=== PATIENT | female | born 1955 | race Caucasian/White ===

== ENCOUNTER → 2020-04-06 12:17 | Outpatient (CLI) | payer MEDICARE, SELFPAY ==
--- NOTE | ~2020-04-06 | DEXA_ITS ---
Bone Density Report Name: Rosalee Toth Age: 64 Sex: Female Ethnicity: White Date of : 1955 Indication: postmenopausal; screening for osteoporosis; height loss; prior fracture; Referring Provider: Eliza, Anastasia Warner Study: Bone densitometry was performed. Exam Date: April 06, 2020 Accession number: [id number] Bone Density: Region BMD T-score Z-score Classification AP Spine (L1, L2, L4) 1.151 1.1 2.9 Normal Femoral Neck (Left) 0.794 -0.5 1.0 Normal Total Hip (Left) 0.972 0.2 1.5 Normal Femoral Neck (Right) 0.871 0.2 1.7 Normal Total Hip (Right) 1.008 0.5 1.8 Normal Total Hip Mean 0.990 0.4 1.7 Normal World Health Organization criteria for BMD impression classify patients as: Normal (T-score at or above -1.0), Osteopenia (T-score between -1.0 and -2.5), or Osteoporosis (T-score at or below -2.5). 10-year Fracture Risk: FRAX not reported because: All T-scores for Spine Total, Hip Total, Femoral Neck at or above -1.0 Previous Exams: Region Exam Age BMD T-score BMD Change BMD Change Date g/cm2 vs Baseline vs Previous AP Spine(L1, L2, L4) 04/06/2020 64 1.151 1.1 0.024* 0.024* 10/08/2009 54 1.128 0.9 Total Hip(Left) 04/06/2020 64 0.972 0.2 -0.027 -0.027 10/08/2009 54 0.999 0.5 Total Hip(Right) 04/06/2020 64 1.008 0.5 0.036* 0.036* 10/08/2009 54 0.973 0.3 *Denotes significance at 95% confidence level, LSC for AP Spine = 0.022 g/cm2, LSC for Total Hip = 0.027 g/cm2 Clinical Information Provided by Patient: Has had a low trauma fracture Patient maximum height was 68.25 Menopause Age: 42 No regular weight bearing exercise Does not regularly consume dairy products Drinks caffeinated beverages Onset of menses at age 9 Number of children 1 Impression: The patient has normal bone mass. The patient has risk factors, including: previous fracture. No significant bone loss was observed. Discussion: BONE DENSITY IS ABOVE THE MINIMUM DESIRABLE LEVEL AT ALL SKELETAL SITES TESTED. This patient?s bone mineral density is above the minimum desirable level (T-score -1.0 or better) at all sites measured. The patient should follow a healthful lifestyle (good nutrition with adequate calcium and vitamin D, and appropriate weight-bearing exercise). Follow-Up: Consider repeating this study in 5 years or sooner if there is some new clinical indication. Reported by
--- NOTE | ~2020-04-06 | MM_ITS ---
EXAMINATION: MM screening [facility] BI w [place] HISTORY: Screening mammogram TECHNIQUE: Craniocaudal and mediolateral oblique 3-D tomosynthesis images were obtained and synthetic 2-D images were generated. CAD analysis was submitted and interpreted. COMPARISON: 01/25/2018, 01/27/2016, 08/23/2012 BREAST PARENCHYMAL COMPOSITION: The breasts are almost entirely fatty. FINDINGS: Small left breast masses have a stable appearance compared to prior mammograms. There is no evidence of suspicious mass, calcification, or architectural distortion to suggest malignancy in eit her breast. There has been no suspicious interval change. IMPRESSION: 1. No mammographic evidence of malignancy. 2. Recommend routine screening mammography in one year. BI-RADS Category 2: Benign finding(s). Reviewed, dictated and finalized at location A. RESS ENGINEER
== END ==
PROVIDERS: PCP Family Medicine Adolescent Medicine; Visit Provider Physician Assistant
DX: Z12.31 Encounter for screening mammogram for malignant neoplasm of breast (principal); Z78.0 Asymptomatic menopausal state
CPT/HCPCS: 77063; 77067; 77080

== ENCOUNTER 2020-11-29 14:13 | Emergency (ER) | payer MEDICARE, SELFPAY ==
--- NOTE | ~2020-11-29 | XR_ITS ---
EXAMINATION: XR elbow RT min 3V EXAM DATE: 11/29/2020 14:31 INDICATION: Fall today, right elbow weakness. Initial encounter. TECHNIQUE: Right elbow frontal, lateral with flexion, and oblique projections obtained and reviewed. There is no prior study for comparison. FINDINGS: Acute closed posttraumatic right radial neck fracture. No definite fracture line extending through the head. There is an elbow joint hemarthrosis. No other suspicious findings. IMPRESSION: Acute nondisplaced right radial neck fracture. Hemarthrosis. Reviewed, dictated and finalized at location A.
[2020-11-29 14:23] VITALS: BP 97/60; PULSE 92; RESP 16; TEMP 36.2; O2SAT 98
--- NOTE | 2020-11-29 14:46 | ED.UPPEXIN ---
HPI - Extremity Injury (Upper) General Chief Complaint: Extremity Injury, Upper Stated Complaint: rt arm injury Source: patient and RN notes reviewed Limitations: no limitations History of Present Illness HPI narrative: The obese patient, previously mostly healthy on minimal meds, presents with elbow pain. Patient states she slipped and fell on outstretched hand and has mild right elbow pain that is worse at endpoints of movement. No bleeding, deformity, prior/other injury-though she abraded her right knee. She has a prior orthopedist [Dr. Mendez], so advised to see them in follow-up; screening blood pressure remarkable for /60. Patient states she is asymptomatic without lightheadedness, presyncope; advised to take half her lisinopril dose, tell her doctor, and check her blood pressures at least daily. Related Data Home Medications Medication Instructions Recorded Confirmed ezetimibe mg 11/29/20 ibuprofen 11/29/20 lisinopril 11/29/20 metformin mg PO 11/29/20 Allergies Allergy/AdvReac Type Severity Reaction Status Date / Time codeine Allergy Unknown Hives Verified 11/29/20 14:49 Penicillins Allergy Unknown Other Verified 11/29/20 14:49 hydromorphone [From Dilaudid] Allergy Hives Verified 11/29/20 14:49 Review of Systems Review of Systems: Narrative: General/Constitutional: No weight loss,fever Eyes: N0: Redness,discharge Ears/Nose/Throat: No: Epistaxis,ear discharge Respiratory: Denies: Hemoptysis Gastrointestinal: No Vomiting, Bleeding-rectal Skin: No Lumps, eruption Neurologic: No Focal Weakness,Sz Hematologic: Denies: Petechiae/Purpura Psychiatric: No: Suicida ideationl All Other Systems: Reviewed and Negative PMFSH Family History Family History (Updated 01/22/14 @ 07:13 by DOCTOR UNKNOWN) Father Cerebrovascular accident Sibling Cerebrovascular accident Acute myocardial infarction Other Diabetes mellitus Hypertension Social History Social History Alcohol intake: never Comments At time of signature, agree with nursing past medical, surgical, social and family history. There is no relevant family history pertinent to the presenting complaint Exam Narrative: Exam Narrative: General Appearance: Overweight/well nourished, , Conjunctiva clear Mouth/Throat: Normal appearing, Normal lips, Supple Respiratory: Airway patent, No respiratory distress MS-elbow:Nl strength (mostly intact, limited flexion/extension by pain),Tenderness (proximo- laterally, with mild decreased ROM), no swelling ,Other-no anterior drawer, no collateral laxity, Skin: Warm, Dry, Normal color; R knee abraded Neurological: A&O x3, Speech clear, CN II-XII intact Psychiatric: Normal mood, Normal affect Course Course Emergency Course: Films visualized, interpreted by radiologist, agree, ABnormal see report Vital Signs Vital signs: Vital Signs Temperature 97.1 F L 11/29/20 14:23 Pulse Rate 92 11/29/20 14:23 Respiratory Rate 16 11/29/20 14:23 Blood Pressure 97/60 L 11/29/20 14:23 Pulse Oximetry 98 11/29/20 14:23 Temperature 97.1 F L 11/29/20 14:23 Pulse Rate 92 11/29/20 14:23 Respiratory Rate 16 11/29/20 14:23 Blood Pressure 97/60 L 11/29/20 14:23 Pulse Oximetry 98 11/29/20 14:23 Discharge Plan Discharge Clinical Impression: Fracture of right radius Qualifiers: Encounter type: initial encounter Radius location: neck Fracture type: closed Fracture alignment: nondisplaced Qualified Code(s): S52.134A - Nondisplaced fracture of neck of right radius, initial encounter for closed fracture Patient Disposition: Home, Self-Care Condition: Improved Instructions: Elbow Fracture (ED) Additional Instructions: Wear splint, see orthopedics in follow-up Prescriptions: New tramadol 50 mg tablet 50 mg PO TID PRN (Reason: pain) Qty: 20 RF: 0 No Action lisinopril 10 mg tablet RF: 0 ibuprofen 200 mg Tablet RF: 0 metformin 500 m
== END 2020-11-29 15:10 | disposition home or self-care (01) ==
PROVIDERS: Emergency Provider Emergency Medicine; PCP Family Medicine Adolescent Medicine
DX: S52.134A Nondisplaced fracture of neck of right radius, initial encounter for closed fracture (principal); W01.0XXA Fall on same level from slipping, tripping and stumbling without subsequent striking against object, initial encounter
CPT/HCPCS: 29105; 73080; 99214; A4565; G0463

== ENCOUNTER 2023-09-14 12:56 | Outpatient (CLI) | payer MEDICARE, SELFPAY ==
--- NOTE | ~2023-09-14 | CT_ITS ---
Non-contrast CT scan of the Abdomen and Pelvis Clinical indication: Abdominal pain Technique: 2.5 mm axial scans were obtained through the abdomen and pelvis without intravenous or or al contrast. Dose reduction technique was used on this scan by utilizing automated exposure control a nd iterative reconstruction technique. The dose-length product (DLP) was 1162.66 mGy-cm. Findings: Images through the lung bases reveal no abnormalities. There is no evidence of renal or ureteral calculi. The kidneys and the ureters are nondilated. The liver, spleen, pancreas, gallbladder, and adrenals appear normal. There are atherosclerotic calci fications of the aorta. There is no evidence of bowel obstruction. Images through the pelvis were performed. There is no evidence of ascites or lymphadenopathy. Urinary bladder unremarkable. No pelvic mass seen. No ascites. Impression: No significant abnormality seen. Reviewed, dictated and finalized at [facility]. Impression: No significant abnormality seen.
== END 2023-09-14 12:57 ==
PROVIDERS: PCP Family Medicine Adolescent Medicine; Visit Provider Family Medicine Adolescent Medicine
DX: R10.84 Generalized abdominal pain (principal)
CPT/HCPCS: 74176

== ENCOUNTER 2023-10-11 00:50 | Day surgery (SDC) | payer MEDICARE, SELFPAY ==
[2023-10-02 15:05] VITALS: BMI 33.9
[2023-10-11 06:50] VITALS: BP 138/84; PULSE 69; RESP 18; TEMP 36.4; O2SAT 99; BMI 36.5
[2023-10-11] MEDS: LACTATED RINGERS 1,000 ML 150 ML IV CONT (06:53)
[2023-10-11 07:12] LABS: Glucose Point of Care 130 mg/dl (65-105)
--- NOTE | 2023-10-11 07:27 | WPDANESEPPF ---
Anes - Initial Pre Proc Eval Procedure: Operation Date: 10/11/23 08:00 Proposed Procedures p Colonoscopy - Juan Carlos Griffin MD Date/Time: 10/11/23 07:27 Surgeon: Juan Carlos Griffin MD Pre Op Diagnosis: CIBH, RLQ Pain, Constipation, Pers. Hx. colon Poly Patient Data Age: 68 Gender: F Height: 1.73 m Weight: 109 kg Last Vital Signs Temp 97.6 F 10/11/23 06:50 Pulse 69 10/11/23 06:50 Resp 18 10/11/23 06:50 BP 138/84 10/11/23 06:50 Pulse Ox 99 10/11/23 06:50 O2 Del Method Room Air 10/11/23 06:50 Allergies Allergy/AdvReac Type Severity Reaction Status Date / Time hydromorphone [From Dilaudid] Allergy Severe Rash Verified 10/11/23 06:49 codeine Allergy Intermediate Hives Verified 10/11/23 06:49 Penicillins Allergy Unknown Other Verified 10/11/23 06:49 Home Medications Medication Instructions Recorded Confirmed Type fluticasone propionate 50 1 spray intranasal DAILY PRN 08/04/21 10/02/23 History mcg/actuation nasal ALLERGIES spray,suspension (Aller-Jovanni) ibuprofen 200 mg tablet 200 mg PO QHS 08/04/21 10/02/23 History loratadine 10 mg tablet (Allergy 10 mg PO DAILY PRN ALLERGIES 08/04/21 10/02/23 History Relief (loratadine)) olopatadine 0.2 % eye drops (Eye 1 drp EACH EYE DAILY PRN ALLERGIES 08/04/21 10/02/23 History Allergy Itch Relief) blood sugar diagnostic (Accu-Chek #100 ea 01/05/22 09/26/23 Rx Betsy Plus test strips) ezetimibe 10 mg tablet See Rx Instructions .Route 07/22/23 10/02/23 Rx .COMPLEX #90 tabs lisinopril 10 mg tablet See Rx Instructions .Route 08/29/23 10/02/23 Rx .COMPLEX #90 tabs metformin 500 mg tablet,extended 500 mg PO DAILY 10/02/23 10/02/23 History release 24 hr Laboratory Tests 10/11/23 07:08 POC Capillary Glucose 130 H mg/dl (65-105) Patient hx anesthesia problems: none Family hx anesthesia problems: none Results Review: All pre-operative results and documents have been reviewed as part of the pre-operative evaluation. [facility] Past Medical History Medical History (Updated 09/26/23 @ 13:44 by Sondra Galeano APRN) Chronic low back pain Diabetes type 2, controlled H/O abdominal abscess History of ankle fracture Hypertension Infected hernioplasty mesh Mixed hyperlipidemia Radius fracture Surgical History Surgical History (Updated 09/26/23 @ 13:57 by Sondra Galeano APRN) H/O hernia repair History of ankle surgery History of partial colectomy (2004) sigmoidectomy for diverticulitis Family History Family History Father Cerebrovascular accident Heart disease Hypertension Sibling Cerebrovascular accident Acute myocardial infarction Diabetes mellitus Heart disease Hypertension Sibling Acute myocardial infarction Diabetes mellitus Heart disease Hypertension Social History Social History Smoking packs per day: 0.5 Smoking cigarettes per day: 10.0 Years smoked: 20 Smoking pack-years: 10.00 Smoking status: Former smoker Tobacco type: cigarettes Second hand tobacco smoke exposure: No Smoking end date: 04/27/04 Alcohol intake: current Substance use: never Substance use type: does not use Lack of Transportation: No Lack of Food: Never True Current Housing: I Have Housing Concerned About Future Housing: No Difficulty Paying Gas/Electric Bills: No Difficulty Paying for Meds: No Currently Unemployed: No Education: High School Diploma/GED Difficulty w/ Childcare or Family Care: No Living arrangements: with family Occupation/Education: retired Gender identity (if verbalized by the patient): Female Sexual Orientation (if Verbalized by the Patient): Straight or Heterosexual Spiritual care concerns: No Agree to blood products: Yes Anes - Eval Final PreProcedure Day of Procedure 10/11/23 07:27
--- NOTE | 2023-10-11 07:45 | WPDHPUPDATE1 ---
History and Physical Update Update Date/Time: 10/11/23 07:45 History and Physical has been reviewed, including an updated exam of the patient. There are NO changes in the patient's condition. Risks, benefits, and alternatives have been discussed and questions answered. Patient agrees to proceed with procedure.
[2023-10-11 08:02] VITALS: BP 100/62; PULSE 78; O2SAT 93
[2023-10-11 08:12] VITALS: BP 103/65; PULSE 72; O2SAT 96
[2023-10-11 08:22] VITALS: BP 113/70; PULSE 68; O2SAT 98
== END 2023-10-11 08:36 | disposition home or self-care (01) ==
PROVIDERS: PCP Family Medicine Adolescent Medicine; Referring Provider Nurse Practitioner; Visit Provider Internal Medicine Gastroenterology
PROC: 0DJD8ZZ Inspection of Lower Intestinal Tract, Via Natural or Artificial Opening Endoscopic (ICD-10-PCS; CPT 45378; principal; 2023-10-11 08:00)
DX: R19.4 Change in bowel habit (principal); K64.8 Other hemorrhoids; K64.4 Residual hemorrhoidal skin tags; K57.30 Diverticulosis of large intestine without perforation or abscess without bleeding; I10 Essential (primary) hypertension; E78.2 Mixed hyperlipidemia; E11.9 Type 2 diabetes mellitus without complications; I49.5 Sick sinus syndrome; M54.50 Low back pain, unspecified; G89.29 Other chronic pain; E66.9 Obesity, unspecified; Z68.36 Body mass index [BMI] 36.0-36.9, adult; Z79.1 Long term (current) use of non-steroidal anti-inflammatories (NSAID); Z79.84 Long term (current) use of oral hypoglycemic drugs; Z98.890 Other specified postprocedural states; Z98.0 Intestinal bypass and anastomosis status; Z90.49 Acquired absence of other specified parts of digestive tract; Z95.0 Presence of cardiac pacemaker; Z86.010 Personal history of colon polyps; Z87.891 Personal history of nicotine dependence; Z82.49 Family history of ischemic heart disease and other diseases of the circulatory system
CPT/HCPCS: 45378; 82948; J2001; J2704; J7120

== ENCOUNTER 2024-03-03 14:29 | Outpatient (CLI) | payer MEDICARE, SELFPAY ==
--- NOTE | ~2024-03-03 | MM_ITS ---
EXAMINATION: MM screening [facility] BI w [place] HISTORY: Screening TECHNIQUE: Craniocaudal and mediolateral oblique 3-D tomosynthesis images were obtained and synthetic 2-D images were generated. CAD analysis was submitted and interpreted. COMPARISON: Comparison to multiple prior studies sequentially, with oldest reviewed study dated 05/2015. BREAST PARENCHYMAL COMPOSITION: Not Dense: The breasts are almost entirely fatty. FINDINGS: There is no evidence of suspicious mass, calcification, or architectural distortion to sugg est malignancy in either breast. There has been no suspicious interval change. IMPRESSION: 1. No mammographic evidence of malignancy. 2. Recommend routine screening mammography in one year. BI-RADS Category 1: Negative Reviewed, dictated and finalized at location B.
== END 2024-03-03 14:30 | disposition home or self-care (01) ==
LOC: ANHIMG 14:32
PROVIDERS: PCP Family Medicine Adolescent Medicine; Visit Provider Nurse Practitioner Family
DX: Z12.31 Encounter for screening mammogram for malignant neoplasm of breast (principal)
CPT/HCPCS: 77063; 77067

== ENCOUNTER 2025-04-14 08:05 | Outpatient (CLI) | payer MEDICARE, SELFPAY ==
--- NOTE | ~2025-04-14 | MM_ITS ---
EXAMINATION: MM screening [facility] BI w [place] HISTORY: Screening TECHNIQUE: Craniocaudal and mediolateral oblique 3-D tomosynthesis images were obtained and synthetic 2-D images were generated. CAD analysis was submitted and interpreted. COMPARISON: Comparison to multiple prior studies sequentially, with oldest reviewed study dated 01/27/2016. BREAST PARENCHYMAL COMPOSITION: Not Dense: The breasts are almost entirely fatty. FINDINGS: There is no evidence of suspicious mass, calcification, or architectural distortion to suggest malignancy in either breast. There has been no suspicious interval change. IMPRESSION: 1. No mammographic evidence of malignancy. 2. Recommend routine screening mammography in one year. BI-RADS Category 1: Negative Reviewed, dictated and finalized at location O. N IN PLACES OPERATOR
--- NOTE | ~2025-04-14 | DEXA_ITS ---
Bone Density Report Name: FEDERICO RIVERO Age: 69 Sex: Female Ethnicity: White Date of : 1955 Indication: postmenopausal; screening for osteoporosis; prior fracture; Referring Provider: JOHANNA CARRASCO Study: Bone densitometry was performed. Exam Date: April 14, 2025 Accession number: [id number] Bone Density: Region BMD T-score Z-score Classification AP Spine(L1-L4) 1.198 1.4 3.5 Normal Femoral Neck (Left) 0.741 -1.0 0.9 Normal Total Hip (Left) 0.937 0.0 1.5 Normal Femoral Neck (Right) 0.844 0.0 1.8 Normal Total Hip (Right) 0.986 0.4 1.9 Normal Femoral Neck Mean 0.792 -0.5 1.3 Normal Total Hip Mean 0.962 0.2 1.7 Normal World Health Organization criteria for BMD impression classify patients as: Normal (T-score at or above -1.0), Osteopenia (T-score between -1.0 and -2.5), or Osteoporosis (T-score at or below -2.5). 10-year Fracture Risk: FRAX not reported because: All T-scores for Spine Total, Hip Total, Femoral Neck at or above -1.0 Clinical Information Provided by Patient: Has had a low trauma fracture Patient maximum height was 68 Menopause Age: 49 No regular weight bearing exercise Does not regularly consume dairy products Drinks caffeinated beverages Onset of menses at age 9 Number of children 1 Impression: The patient has normal bone mass. The patient has risk factors, including: previous fracture. Discussion: BONE DENSITY IS ABOVE THE MINIMUM DESIRABLE LEVEL AT ALL SKELETAL SITES TESTED. This patient?s bone mineral density is above the minimum desirable level (T-score -1.0 or better) at all sites measured. The patient should follow a healthful lifestyle (good nutrition with adequate calcium and vitamin D, and appropriate weight-bearing exercise). Follow-Up: Consider repeating this study in 5 years or sooner if there is some new clinical indication. Reported by: FELIX on 04/14/2025 8:46:00 AM. Reviewed, dictated and finalized at location A.
== END 2025-04-14 08:06 | disposition home or self-care (01) ==
PROVIDERS: PCP Family Medicine Adolescent Medicine; Visit Provider Nurse Practitioner Family
DX: Z12.31 Encounter for screening mammogram for malignant neoplasm of breast (principal); Z78.0 Asymptomatic menopausal state
CPT/HCPCS: 77063; 77067; 77080